=== PATIENT | female | born 1950 | race Caucasian/White ===

== ENCOUNTER → 2017-05-03 | Outpatient (CLI) | payer OTHER | END | disposition home or self-care (01) | LOC: MAMMO 02:02 | DX: Z12.31 Encounter for screening mammogram for malignant neoplasm of breast (principal) ==

== ENCOUNTER → 2017-05-16 | Outpatient (CLI) | payer OTHER | END | disposition home or self-care (01) | LOC: MAMMO 00:56 | DX: R92.2 Inconclusive mammogram (principal); R92.8 Other abnormal and inconclusive findings on diagnostic imaging of breast ==

== ENCOUNTER → 2018-02-21 | Outpatient (CLI) | payer MEDICARE | END | disposition home or self-care (01) | LOC: MAMMO 02-14 09:00 | DX: R92.8 Other abnormal and inconclusive findings on diagnostic imaging of breast (principal); R92.2 Inconclusive mammogram ==

== ENCOUNTER → 2020-02-27 | Day surgery (SDC) | payer MEDICARE ==
[2020-02-25 14:12] VITALS: BP 129/77
[2020-02-25 15:11] LABS: BASO # 0.1 10*3/uL (0.0-0.1); BASO % 0.6 % (0.0-1.0); EOS # 0.3 10*3/uL (0.0-0.4); EOS % 2.8 % (1.0-4.0); HEMATOCRIT 43.9 % (37.0-47.0); LYMPH # 2.7 10*3/uL (1.3-4.4); LYMPH % 27.6 % (27.0-41.0); MEAN CELL VOLUME 88.9 fl (81.0-99.0); MEAN CORPUSCULAR HGB 28.7 pg (27.0-31.0); MEAN CORPUSCULAR HGB CONC 32.3 g/dl (33.0-37.0); MONO # 0.5 10*3/uL (0.1-1.0); MONO % 4.9 % (3.0-9.0); NEUT # 6.2 10*3/uL (2.3-7.9); NEUT % 63.8 % (47.0-73.0); PLATELET COUNT AUTOMATED 265 10*3/uL (130-400); RED BLOOD COUNT 4.94 10*6/uL (4.10-5.10); RED CELL DISTRI WIDTH 13.1 % (0-14.5); WHITE BLOOD COUNT 9.7 10*3/uL (4.8-10.8)
[2020-02-25 15:38] LABS: BUN 17 mg/dl (7-24); CHLORIDE 102 mmol/L (98-107); CREATININE 0.85 mg/dL (0.55-1.02); POTASSIUM 3.7 mmol/L (3.5-5.1); SODIUM 139 mmol/L (136-145)
[~2020-02-27] VITALS: Ht 170.1 cm; Wt 90.3 kg
[~2020-02-27] MED LIST: AVALIDE 150-121 EACH PO; B COMPLEX1 EACH PO; CENTRUM SILVER1 EAC1 PO; FLONASE ALLERG9.9 ML NAS; LIPITOR20 MG PO; TOPROL XL25 MG PO
[2020-02-27 08:50] VITALS: BP 163/86
[2020-02-27 11:41] VITALS: BP 147/70
[2020-02-27 11:56] VITALS: BP 143/77
[2020-02-27 12:11] VITALS: BP 148/70
[2020-02-27 12:26] VITALS: BP 140/74
[2020-02-27 12:41] VITALS: BP 136/65
== END | disposition home or self-care (01) ==
LOC: SDC 02-25 14:00
PROVIDERS: ATTEND Orthopaedic Surgery
DX: S82.61XA Displaced fracture of lateral malleolus of right fibula, initial encounter for closed fracture (principal); S93.421A Sprain of deltoid ligament of right ankle, initial encounter; I10 Essential (primary) hypertension; E78.5 Hyperlipidemia, unspecified; G47.30 Sleep apnea, unspecified; Z98.890 Other specified postprocedural states; X58.XXXA Exposure to other specified factors, initial encounter; Y93.89 Activity, other specified; Y92.89 Other specified places as the place of occurrence of the external cause; Y99.8 Other external cause status; Z98.51 Tubal ligation status

== ENCOUNTER → 2020-03-13 | Outpatient (CLI) | payer MEDICARE | END | disposition home or self-care (01) | LOC: ORTHO 05:51 | PROVIDERS: ATTEND Orthopaedic Surgery | DX: S82.61XA Displaced fracture of lateral malleolus of right fibula, initial encounter for closed fracture (principal); X58.XXXA Exposure to other specified factors, initial encounter; Y93.89 Activity, other specified; Y92.89 Other specified places as the place of occurrence of the external cause; Y99.8 Other external cause status ==

== ENCOUNTER → 2020-04-10 | Outpatient (CLI) | payer MEDICARE | END | disposition home or self-care (01) | LOC: ORTHO 00:34 | PROVIDERS: ATTEND Orthopaedic Surgery | DX: S82.61XD Displaced fracture of lateral malleolus of right fibula, subsequent encounter for closed fracture with routine healing (principal); Z98.890 Other specified postprocedural states; X58.XXXD Exposure to other specified factors, subsequent encounter ==

== ENCOUNTER → 2020-05-25 | Outpatient (CLI) | payer MEDICARE | END | disposition home or self-care (01) | LOC: ORTHO 00:24 | PROVIDERS: ATTEND Orthopaedic Surgery | DX: S82.61XD Displaced fracture of lateral malleolus of right fibula, subsequent encounter for closed fracture with routine healing (principal); X58.XXXD Exposure to other specified factors, subsequent encounter ==

== ENCOUNTER → 2023-10-03 | Outpatient (CLI) | payer MEDICARE ==
[2023-10-03 09:39] LABS: BILIRUBIN Negative (Negative); BLOOD Negative (Negative); CLARITY Clear (Clear); COLOR Yellow (Yellow); GLUCOSE Negative (Negative); KETONE Negative (Negative); LEUKO ESTERASE 1+ (Negative); NITRITE Negative (Negative); PH 5.5 (4.5-8.0); SPECIFIC GRAVITY 1.015 (1.001-1.030)
[2023-10-03 10:13] LABS: BACTERIA TRACE; MUCOUS TRACE
== END ==
LOC: LAB 08:45
PROVIDERS: ATTEND Urology
DX: N02 Recurrent and persistent hematuria (principal)

== ENCOUNTER → 2024-07-22 | Outpatient (CLI) | payer MEDICARE ==
[2024-07-22 08:27] LABS: BASO # 0.1 10*3/uL (0.0-0.1); BASO % 0.6 % (0.0-1.0); EOS # 0.2 10*3/uL (0.0-0.4); HEMATOCRIT 43.3 % (37.0-47.0); MEAN CELL VOLUME 89.6 fl (81.0-99.0); MEAN CORPUSCULAR HGB 29.2 pg (27.0-31.0); MEAN CORPUSCULAR HGB CONC 32.6 g/dl (33.0-37.0); MEAN PLATELET VOLUME 8.7 fl (9.6-12.3); MONO # 0.5 10*3/uL (0.1-1.0); MONO % 5.4 % (3.0-9.0); NEUT # 4.9 10*3/uL (2.3-7.9); NEUT % 54.8 % (47.0-73.0); PLATELET COUNT AUTOMATED 241 10*3/uL (130-400); RED BLOOD COUNT 4.83 10*6/uL (4.10-5.10); RED CELL DISTRI WIDTH 12.6 % (0-14.5); WHITE BLOOD COUNT 8.9 10*3/uL (4.8-10.8)
[2024-07-22 09:13] LABS: ALKALINE PHOSPHATASE 102 U/L (46-116); BUN 14 mg/dl (9-23); CHLORIDE 103 mmol/L (98-107); CHOLESTEROL 168 mg/dL (<200); LDL CHOLESTEROL 90 mg/dL (9-159); POTASSIUM 3.7 mmol/L (3.4-5.1); SGPT/ALT 19 U/L (5-49); TOTAL PROTEIN 7.3 gm/dL (6.0-8.0); TRIGLYCERIDES 99 mg/dl (<150)
== END | disposition home or self-care (01) ==
LOC: LAB 08:13
PROVIDERS: ATTEND Internal Medicine
DX: I10 Essential (primary) hypertension (principal); E78.2 Mixed hyperlipidemia

== ENCOUNTER → 2024-12-30 | Outpatient (CLI) | payer MEDICARE ==
[2024-12-30 07:38] LABS: BASO # 0.1 10*3/uL (0.0-0.1); BASO % 0.7 % (0.0-1.0); EOS # 0.5 10*3/uL (0.0-0.4); EOS % 5.8 % (1.0-4.0); MEAN CELL VOLUME 87.6 fl (81.0-99.0); MEAN CORPUSCULAR HGB 28.9 pg (27.0-31.0); MEAN PLATELET VOLUME 9.1 fl (9.6-12.3); MONO # 0.5 10*3/uL (0.1-1.0); MONO % 6.0 % (3.0-9.0); NEUT # 4.1 10*3/uL (2.3-7.9); NEUT % 48.1 % (47.0-73.0); NUCLEATED RED BLOOD CELL 0.0 % (0.0-0.0); NUCLEATED RED BLOOD CELL 0.0 10*3/uL (0.0-0.0); PLATELET COUNT AUTOMATED 240 10*3/uL (130-400); RED CELL DISTRI WIDTH 12.6 % (0-14.5)
[2024-12-30 08:08] LABS: BUN 18 mg/dl (9-23); LDL CHOLESTEROL 75 mg/dL (9-159); SGPT/ALT 17 U/L (5-49)
== END ==
LOC: LAB 07:10
PROVIDERS: ATTEND Internal Medicine
DX: I10 Essential (primary) hypertension (principal); E11.9 Type 2 diabetes mellitus without complications; E78.2 Mixed hyperlipidemia; E78.5 Hyperlipidemia, unspecified; E55.9 Vitamin D deficiency, unspecified

== ENCOUNTER → 2025-04-07 | Outpatient (CLI) | payer MEDICARE ==
[2025-04-07 16:25] LABS: BILIRUBIN Negative (Negative); BLOOD 2+ (Negative); CLARITY Clear (Clear); COLOR Yellow (Yellow); KETONE Negative (Negative); LEUKO ESTERASE 1+ (Negative); NITRITE Negative (Negative); PH 6.0 (4.5-8.0); SPECIFIC GRAVITY 1.010 (1.001-1.030); UROBILINOGEN 1.0 E.U./dl (0.0-1.0)
[2025-04-07 16:45] LABS: BACTERIA TRACE
== END | disposition home or self-care (01) ==
LOC: LAB 15:48
PROVIDERS: ATTEND Nurse Practitioner Gerontology
DX: N02 Recurrent and persistent hematuria (principal)